=== PATIENT | female | born 1980 | race African-American/Black ===

== ENCOUNTER 2017-11-08 06:44 | Emergency (ER) | payer OTHER ==
[~2017-11-08] VITALS: Ht 172.7 cm; Wt 74.8 kg
[2017-11-08] MEDS ORDERED: ASPIRIN 325 MG TAB PO ONE (07:15)
[2017-11-08] MEDS ORDERED: MAGNESIUM/ALUMINUM/SIMETHICONE 30 ML UDC PO ONE (07:15)
[2017-11-08] MEDS ORDERED: LIDOCAINE VISC 2% SOLN 15 ML UDC PO ONE (07:15)
--- NOTE | 2017-11-08 07:38 | Diagnostic Imaging Report ---
PROCEDURE:CXR 2 VIEW - HOPD COMPARISON:None. INDICATIONS:CHEST PAIN X30 MINUTES FINDINGS: Lines and tubes: None Lungs: The lungs are well inflated. No evidence of pneumonia or pulmonary edema. Pleura: No evidence of pleural effusion or pneumothorax. Heart and mediastinum: The cardiomediastinal silhouette is unremarkable. Bone: No acute bony findings. CONCLUSION: No acute intrathoracic abnormality. Dictated by: ASH BREWSTER M.D. on 11/08/2017 at 7:44 Electronically approved by: ASH BREWSTER M.D. on 11/08/2017 at 7:44
[2017-11-08] MEDS ORDERED: DIPHENHYDRAMINE HCL 25 MG CAP PO ONE (08:15)
== END 2017-11-08 10:06 | disposition home or self-care (01) ==
LOC: FSED 06:44
DX: R07.2 Precordial pain (principal); R11.0 Nausea; M35.00 Sjogren syndrome, unspecified; N80.9 Endometriosis, unspecified
CPT/HCPCS: 71046; 80053; 81025; 82553; 84484; 85025; 93005; 99284